=== PATIENT | female | born 1995 | race Caucasian/White ===

== ENCOUNTER 2019-08-30 22:17 | Emergency (ER) | payer OTHER ==
[2019-08-30] MEDS ORDERED: PROMETHAZINE HCL 25 MG/ML VIAL IM ONE (22:28)
--- NOTE | 2019-08-30 22:31 | ED Physician Documentation ---
Nausea/Vomiting/Diarrhea - HISTORIAN Historian: patient - HPI Chief Complaint: Nausea,Vomiting,Diarrhea Additional Information: 23 year old female presents to the ER with c/o nausea and vomiting that started around 6 pm this evening. States that she went to urgent care on 08/12 for UTI and thinks she may have the same symptoms. Onset: hours Duration: waxing, waning Timing: gradual onset Context: denies: out of country travel, bad food Severity: mild - Associated Symptoms Vomiting: mild Abdominal Pain: aching - ROS CONST: none CVS/RESP: denies: shortness of breath, cough GI/: none EYES/ENT: none MS/SKIN/LYMPH: denies: joint pain NEURO/PSYCH: none - PAST HX Past History: none Other History: Crohn's Surgeries/Procedures: other (small intestine resection) Allergies/Adverse Reactions: Allergies Allergy/AdvReac Type Severity Reaction Status Date / Time No Known Allergies Allergy Verified 08/30/19 22:31 Home Medications: Ambulatory Orders Medication Instructions Recorded Adalimumab [Humira(Cf) Pen] 08/30/19 Adalimumab [Humira(Cf) Pen] 40 mg IM DIRECTED 08/30/19 Amitriptyline HCl [Elavil] 25 mg PO HS 08/30/19 CiproFLOXacin HCL [Cipro] 500 mg PO BID #12 tablet 08/30/19 Duloxetine HCl [Cymbalta] 60 mg PO DAILY 08/30/19 Ethynodiol D-Ethinyl Estradiol 1 tab PO DAILY 08/30/19 [Kelnor 1-35 28 Tablet] Promethazine HCl [Phenergan] 25 mg PO Q6 PRN #10 tablet 08/30/19 - SOCIAL HX Smoking History: non-smoker Alcohol Use: none Drug Use: none - FAMILY HX Family History: none - VITAL SIGNS Vital Signs: Vital Signs Temp Pulse Resp BP Pulse Ox 97.9 F 112 H 18 133/91 99 08/30/19 23:11 08/30/19 23:11 08/30/19 23:11 08/30/19 23:11 08/30/19 23:11 - REVIEWED ASSESSMENTS Nursing Assessment Reviewed: Yes Vitals Reviewed: Yes Progress - Progress Progress: pt feeling much better after phenergan; no vomiting since arrival to ER; was able to tolerate PO Cipro ED Results Lab/Radiology - Orders Orders: ED Orders Category Date Time Status URINALYSIS Routine Lab 12/24/19 22:27 Ordered URINE HCG Stat Lab 08/30/19 22:38 Ordered CiproFLOXacin HCL [Cipro] Med 08/30/19 22:50 Discontinued 1,000 mg PO TAKE HOME ONE CiproFLOXacin HCL [Cipro] Med 08/30/19 22:42 Discontinued 500 mg PO NOW ONE Promethazine HCl [Phenergan] Med 08/30/19 22:50 Discontinued 100 mg PO TAKE HOME ONE Promethazine HCl [Phenergan] Med 08/30/19 22:28 Discontinued 25 mg IM NOW ONE Nausea Physical Exam - EXAM General Appearance: alert, mild distress EENT: eye inspection normal, ENT inspection normal, pharynx normal, CESAR Neck: normal inspection, supple Respiratory: breath sounds normal CVS: heart sounds normal Abdomen: non-tender Skin: warm/dry, normal color Extremities: non-tender, normal range of motion Neuro/Psych: oriented X3, CN's nml as tested, motor nml, sensation nml, mood/affect nml, cognition normal Discharge Clincal Impression: Urinary tract infection Prescriptions: CiproFLOXacin HCL [Cipro] 500 mg PO BID #12 tablet Promethazine HCl [Phenergan] 25 mg PO Q6 PRN #10 tablet PRN Reason: nausea and vomiting Referrals: Primary Doctor,No [REFERRING] - 2 Days Additional Instructions: Take Cipro 500 mg by mouth twice a day for UTI Take Phenergan 25 mg by mouth every 6 hours as needed for nausea or vomiting Start with clear liquid diet and advance as tolerated- advance to bland diet; no greasy, fried, spicy foods Follow up with PCP next week for re-evaluation Condition: Good Disposition: 01 HOME, SELF-CARE Decision to Admit: NO Decision Time: 05:45
[2019-08-30 22:38] VITALS: BP 133/91
[2019-08-30] MEDS ORDERED: PROMETHAZINE HCL 25 MG TABLET PO ONE (22:50)
[2019-09-01 06:18] LABS: APPEARANCE,URINE CLEAR (CLEAR); COLOR,URINE YELLOW (YELLOW); OCCULT BLOOD,URINE TRACE (NEGATIVE); PH URINE 5.5 (5.0 - 8.0); UROBILINOGEN URINE 0.2 Eu (0.2-1.0)
== END 2019-08-30 23:11 | disposition home or self-care (01) ==
LOC: ED 22:17
DX: N39.0 Urinary tract infection, site not specified (principal)
CPT/HCPCS: 81002; 81025; J2550